=== PATIENT | male | born 1950 | race Caucasian/White ===

== ENCOUNTER → 2020-07-02 | Outpatient (CLI) | payer OTHER ==
[2020-07-02 12:44] LABS: BASOPHILS ABSOLUTE AUTO 0.01 K/mm3 (0.00-0.23); BASOPHILS PERCENT AUTO 0 % (0-2); EOSINOPHILS PERCENT AUTO 0 % (0-6); Hematocrit 39.2 % (37.0-53.0); Hemoglobin 13.2 g/dL (13.5-17.5); IMMATURE GRAN ABSOLUTE AUTO 0.05 K/mm3 (0.00-0.10); IMMATURE GRAN PERCENT AUTO 0 % (0-1); LYMPHOCYTES ABSOLUTE AUTO 0.89 K/mm3 (0.84-5.20); LYMPHOCYTES PERCENT AUTO 8 % (21-46); MONOCYTES ABSOLUTE AUTO 0.83 K/mm3 (0.16-1.47); MONOCYTES PERCENT AUTO 7 % (4-13); Mean Corpuscular HGB 28.8 pg (26.0-34.0); Mean Corpuscular HGB Conc 33.7 g/dL (31.5-36.5); Mean Corpuscular Volume 85 fL (80-100); NEUTROPHILS ABSOLUTE AUTO 9.65 K/mm3 (1.96-9.15); NEUTROPHILS PERCENT AUTO 84 % (41-73); Platelet Count 295 K/mm3 (150-400); RDW Coefficient Variation 12.5 % (11.7-14.2); RDW Standard Deviation 38.8 fL (35.1-46.3); Red Blood Cell Count 4.59 M/mm3 (4.30-5.90); White Blood Cell Count 11.43 K/mm3 (4.00-11.30)
[2020-07-02 12:49] LABS: Albumin, Blood 3.6 g/dL (3.4-5.0); Albumin/Globulin Ratio 0.8 (0.8-1.8); Bilirubin, Total 0.6 mg/dL (0.1-1.0); Bun/Creatinine Ratio 19.5 (12.0-20.0); Calcium, Blood 9.2 mg/dL (8.5-10.1); Creatinine, Blood 1.33 mg/dL (0.60-1.20); Globulin, Blood 4.8 g/dL (2.2-4.0); Potassium, Blood 4.2 mmol/L (3.5-5.5); Total Protein, Blood 8.4 g/dL (6.4-8.2)
== END | disposition home or self-care (01) ==
LOC: LAB 12:35 → LAB SHORT 12:35
PROVIDERS: Physician Assistant
DX: R10.9 Unspecified abdominal pain (principal)
CPT/HCPCS: 80053; 83690; 85025

== ENCOUNTER 2023-06-22 12:36 | Inpatient (IN) | payer OTHER ==
[~2023-06-22] VITALS: Ht 177.8 cm; Wt 93.5 kg
[2023-06-22] MEDS ORDERED: Lovastatin20 MG PO (13:02)
[2023-06-22] MEDS ORDERED: FINA5 PO (13:02)
[2023-06-22] MEDS ORDERED: ALFU10 PO (13:02)
[2023-06-22] MEDS ORDERED: AMLO5 PO (13:02)
[2023-06-22] MEDS ORDERED: LISI20 PO (13:02)
[2023-06-22] MEDS ORDERED: SILD25T PO (13:03)
[2023-06-22 13:49] LABS: Anti-Xa UFH, PHA Monitoring <0.10 IU/mL; International Normalized Ratio 1.04; Prothrombin Time Results 10.9 Sec (9.7-11.5)
[2023-06-22 15:10] VITALS: BP 131/63
[2023-06-22] MEDS ORDERED: COQ-10100 MG PO (15:16)
--- NOTE | 2023-06-22 18:40 | NUR ---
ADMIT NOTE/SHIFT SUMMARY PT ARRIVED TO PCU FROM ED VIA ED STRETCHER AT APPROX 1500. PT AMBULATED FROM ED STRETCHER TO PCU BED INDEPENDENTLY. VSS. PT A&OX4. SP02>90% ON RA. TELEMETRY SHOWS NSR, HR 80'S. PT DENIES CP SINCE ADMIT. ARRIVED W/ NITROPASTE ON, REMOVED THIS EVENING PER MD CASTILLO ORDER. HEP GTT INFUSING PER EMAR. USED URINAL TO VOID. ECHO IN ROOM THIS EVENING. RENAL ULTRASOUND DONE IN ER. VENOUS DUPLEX BLE IN ROOM CURRENTLY. [facility] CALLED TO NOTIFY LUNG/VENT SCAN SCHEDULED FOR 0900 06/23. MD GARCÍA IN ROOM THIS EVENING ASSESSING PT AND REVIEWING PLAN/OPTIONS. MD GARCÍA W/ ORDERS FOR NPO AT MIDNIGHT. PT'S SON, DIL, AND GRANDKIDS IN ROOM. PT ORIENTED TO ROOM, CALL LIGHT. CALL LIGHT IN REACH.
[2023-06-22 19:34] VITALS: BP 117/64
[2023-06-23] VITALS (9 sets, daily range): BP systolic 127–155; BP diastolic 67–82
[2023-06-23 05:17] LABS: BASOPHILS ABSOLUTE AUTO 0.03 K/mm3 (0.00-0.23); BASOPHILS PERCENT AUTO 0 % (0-2); EOSINOPHILS ABSOLUTE AUTO 0.02 K/mm3 (0.00-0.68); EOSINOPHILS PERCENT AUTO 0 % (0-6); Hematocrit 32.6 % (37.0-53.0); Hemoglobin 11.1 g/dL (13.5-17.5); IMMATURE GRAN ABSOLUTE AUTO 0.02 K/mm3 (0.00-0.10); IMMATURE GRAN PERCENT AUTO 0 % (0-1); LYMPHOCYTES ABSOLUTE AUTO 2.85 K/mm3 (0.84-5.20); LYMPHOCYTES PERCENT AUTO 29 % (21-46); MONOCYTES ABSOLUTE AUTO 1.15 K/mm3 (0.16-1.47); MONOCYTES PERCENT AUTO 12 % (4-13); Mean Corpuscular HGB 30.1 pg (26.0-34.0); Mean Corpuscular Volume 88 fL (80-100); Mean Platelet Volume 10.8 fL (9.1-12.4); NEUTROPHILS ABSOLUTE AUTO 5.82 K/mm3 (1.96-9.15); NEUTROPHILS PERCENT AUTO 59 % (41-73); Platelet Count 327 K/mm3 (150-400); RDW Coefficient Variation 12.7 % (11.7-14.2); RDW Standard Deviation 41.2 fL (35.1-46.3); Red Blood Cell Count 3.69 M/mm3 (4.30-5.90); White Blood Cell Count 9.89 K/mm3 (4.00-11.30)
--- NOTE | 2023-06-23 05:35 | NUR ---
END OF SHIFT NOTE: PT A/OX4 AND ABLE TO MAKE NEEDS KNOWN. HIS HR RATE HAS BEEN STABLE WITH NO COMPLAINTS OF CHEST PAIN OR PRESSURE. PT DENIES SOB AND SPO2 >97% ON RA. PT HAS BEEN NPO SINCE MIDNIGHT. HE IS CONTINENT AND USES URINAL AT BEDSIDE DUE TO IV LINES. HE HAS BEEN ON A HEPARIN GTT T/O SHIFT. PT RESTING WITH CALL LIGHT IN REACH.
[2023-06-23 06:12] LABS: Alanine Aminotransfer (ALT/SGP 16 U/L (12-78); Albumin, Blood 3.3 g/dL (3.4-5.0); Alk Phos 86 U/L (50-136); Anion Gap 5 mmol/L (6-16); Aspartate Aminotrans (AST/SGOT 26 U/L (12-37); Bilirubin, Total 0.5 mg/dL (0.1-1.0); CHOL/HDL RATIO 2.9; CO2, Blood 25 mmol/L (21-32); Chloride, Blood 107 mmol/L (98-108); Cholesterol 101 mg/dL (50-200); Creatinine, Blood 0.87 mg/dL (0.60-1.20); Globulin, Blood 3.2 g/dL (2.2-4.0); Glomerular Filtration Rate 90 (60-); Glucose, Blood 112 mg/dL (70-99); HDL Cholesterol 35 mg/dL (>39); LDL/HDL RATIO 1.4; Low Density Lipoprotein Chol 48 mg/dL (0-110); Potassium, Blood 4.1 mmol/L (3.5-5.5); Sodium, Blood 137 mmol/L (136-145); Total Protein, Blood 6.5 g/dL (6.4-8.2); Triglycerides 91 mg/dL (30-160); Very Low Density Lipoprot Chol 18 mg/dL (6-32)
[2023-06-23 06:19] LABS: Blood Urea Nitrogen 14 mg/dL (8-24); Bun/Creatinine Ratio 16.2 (12.0-20.0)
[2023-06-23 09:54] LABS: IMMATURE RETIC FRACTION 4.9 % (2.3-16.0); RETIC HGB EQUIVALENT 34.8 pg (28.20-36.60); RETICULOCYTE ABSOLUTE 0.0423 M/mm3 (0.0200-0.1100); RETICULOCYTE COUNT PERCENT 1.1 % (0.50-2.50)
[2023-06-23 10:20] LABS: Percent Saturation 53.9 % (20.0-50.0)
--- NOTE | 2023-06-23 16:50 | NUR ---
TRANSFER SUMMARY PT A&OX4. SP02>90% ON RA. TELEMTRY SHOWS NSR, HR 80'S. PT HAD ANGIO TODAY, TRANSFERING TO [facility] FOR FURTHER INTERVENTION. PT WITH R RADIAL TR BAND. FULLY DEFLATED AT TIME OF TRANSPORT. ASSESSED TR BAND W/ TRANSPORT TEAM. NO BRUISING, NO BLEEDING, NO HEMATOMA NOTED. ARM BOARD IN PLACE. CALL PLACED TO TANESHA RAMON AT CCU RROM 280 TO GIVE REPORT. NOTIFIED OF CARDIOLOGY INSTRUCTIONS TO START HEPARIN AFTER TR BAND REMOVED. PT GIVEN LASIX THIS AFTERNOON, VOIDED IN URINAL MULTIPLE TIMES. AFTER PT LEFT, BELONGINGS BAG FOUND. 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
== END 2023-06-23 16:37 | disposition short-term general hospital (02) | DRG 280 ==
LOC: ER 12:36 → PCU 14:04
PROVIDERS: Student in an Organized Health Care Education/Training Program; ADMIT Internal Medicine
PROC: 3E02340 Introduction of Influenza Vaccine into Muscle, Percutaneous Approach (ICD-10-PCS; 2023-06-22)
PROC: 4A023N7 Measurement of Cardiac Sampling and Pressure, Left Heart, Percutaneous Approach (ICD-10-PCS; principal; 2023-06-23)
PROC: B2111ZZ Fluoroscopy of Multiple Coronary Arteries using Low Osmolar Contrast (ICD-10-PCS; 2023-06-23)
DX: I21.4 Non-ST elevation (NSTEMI) myocardial infarction (principal); I50.33 Acute on chronic diastolic (congestive) heart failure; N17.9 Acute kidney failure, unspecified; R74.8 Abnormal levels of other serum enzymes; D64.9 Anemia, unspecified; R73.03 Prediabetes; D72.829 Elevated white blood cell count, unspecified; I11.0 Hypertensive heart disease with heart failure; Z23 Encounter for immunization; E78.5 Hyperlipidemia, unspecified; N40.0 Benign prostatic hyperplasia without lower urinary tract symptoms; N52.9 Male erectile dysfunction, unspecified; E66.3 Overweight; Z68.29 Body mass index [BMI] 29.0-29.9, adult; Z82.49 Family history of ischemic heart disease and other diseases of the circulatory system; Z86.16 Personal history of COVID-19; Z79.899 Other long term (current) drug therapy; R07.9 Chest pain, unspecified
CPT/HCPCS: 36415; 71046; 76770; 76937; 78580; 80053; 80061; 82607; 82728; 82746; 83540; 83550; 83690; 83880; 84443; 84484; 85025; 85045; 85379; 85520; 85610; 85730; 93005; 93010; 93306; 93454; 93970; 96361; 96365-59; 96376-59; 99152; 99153; 99285-25; A9270; A9540; C1769; C1887; C1894; G0008; J1644; J1940; J2250; J3010; J7030; J7050; Q2036; Q9967

== ENCOUNTER → 2023-06-22 | Outpatient (CLI) | payer OTHER ==
[~2023-06-22] MED LIST: ALFU10 PO; AMLO5 PO; COQ-10100 MG PO; FINA5 PO; LISI20 PO; Lovastatin20 MG PO; SILD25T PO
[2023-06-22 09:58] LABS: BASOPHILS ABSOLUTE AUTO 0.04 K/mm3 (0.00-0.23); BASOPHILS PERCENT AUTO 0 % (0-2); EOSINOPHILS ABSOLUTE AUTO 0.01 K/mm3 (0.00-0.68); EOSINOPHILS PERCENT AUTO 0 % (0-6); Hematocrit 38.4 % (37.0-53.0); Hemoglobin 12.7 g/dL (13.5-17.5); IMMATURE GRAN ABSOLUTE AUTO 0.05 K/mm3 (0.00-0.10); IMMATURE GRAN PERCENT AUTO 0 % (0-1); LYMPHOCYTES ABSOLUTE AUTO 1.46 K/mm3 (0.84-5.20); LYMPHOCYTES PERCENT AUTO 11 % (21-46); MONOCYTES ABSOLUTE AUTO 0.95 K/mm3 (0.16-1.47); MONOCYTES PERCENT AUTO 7 % (4-13); Mean Corpuscular HGB 29.3 pg (26.0-34.0); Mean Corpuscular HGB Conc 33.1 g/dL (31.5-36.5); Mean Corpuscular Volume 89 fL (80-100); Mean Platelet Volume 10.6 fL (9.1-12.4); NEUTROPHILS ABSOLUTE AUTO 10.63 K/mm3 (1.96-9.15); NEUTROPHILS PERCENT AUTO 81 % (41-73); Platelet Count 397 K/mm3 (150-400); RDW Coefficient Variation 12.8 % (11.7-14.2); RDW Standard Deviation 41.6 fL (35.1-46.3); Red Blood Cell Count 4.33 M/mm3 (4.30-5.90); White Blood Cell Count 13.14 K/mm3 (4.00-11.30)
[2023-06-22 10:12] LABS: Albumin/Globulin Ratio 1.1 (0.8-1.8); Bilirubin, Total 0.6 mg/dL (0.1-1.0); Bun/Creatinine Ratio 15.7 (12.0-20.0); Calcium, Blood 9.7 mg/dL (8.5-10.1); Creatinine, Blood 1.34 mg/dL (0.60-1.20); Globulin, Blood 3.6 g/dL (2.2-4.0); Potassium, Blood 4.1 mmol/L (3.5-5.5); Total Protein, Blood 7.6 g/dL (6.4-8.2)
== END ==
LOC: LAB 09:52 → LAB SHORT 09:52
PROVIDERS: Emergency Medicine
DX: R07.9 Chest pain, unspecified (principal)
CPT/HCPCS: 80053; 83690; 83880; 84484; 85025; 85379